=== PATIENT | male | born 1980 | race Caucasian/White ===

== ENCOUNTER 2022-05-26 09:28 | Day surgery (SDC) | payer OTHER ==
[2022-05-26] VITALS (9 sets, daily range): BP systolic 126–146; BP diastolic 71–93
[~2022-05-26] VITALS: Ht 185.4 cm; Wt 163.7 kg
[~2022-05-26 09:28] MED LIST: CETI-194 PO; FLUT16SP2 BOTHNARES; cocaine 4% topical solution 4ml bottle ONE; epiNEPHrine 1 mg/ml inj ONE; famotidine 20mg tablet PO ONE; mupirocin 2% ointment 22GM ONE; oxymetazoline 15 ML nasal spray NS ONE; oxymetazoline 15 ML nasal spray NS PRN; ringers solution, lacted 1,000 ML IV SCH; tranexamic acid 100mg/ml inj. ONE; tranexamic acid inj. 1,000 MG in normal saline IV soln 100ML IV ONE
[2022-05-26] MEDS ORDERED: LIDOcaine 1% W/epiNEPHrine 1:100,000 20ml vial ONE (11:30)
[2022-05-26] MEDS ORDERED: midazolam 1 mg/ML 2ml injection ONE (12:24)
[2022-05-26] MEDS ORDERED: fentaNYL /PF 50mcg/ml 5ml ampule ONE (12:25)
[2022-05-26] MEDS ORDERED: rocuronium 10mg/ml inj IV ONE ×2 (12:27→12:45)
[2022-05-26] MEDS ORDERED: LIDOcaine 2% (20mg/ml) 5ml vial ONE (12:27)
[2022-05-26] MEDS ORDERED: dexamethasone sod phosphate 4mg/ml inj. ONE (12:27)
[2022-05-26] MEDS ORDERED: propofol inj 20 ML IV ONE (12:27)
[2022-05-26] MEDS ORDERED: sevoflurane 250ml liquid IH ONE (12:45)
[2022-05-26] MEDS ORDERED: meperidine/PF 25mg/ml syringe IV PRN ×3 (13:10)
[2022-05-26] MEDS ORDERED: ringers solution, lacted 1,000 ML IV SCH (13:10)
[2022-05-26] MEDS ORDERED: ondansetron/PF 4mg/2ml inj IV PRN (13:10)
[2022-05-26] MEDS ORDERED: proCHLORperazine 10 MG/2 ml inj IV PRN (13:10)
[2022-05-26] MEDS ORDERED: morphine 2 MG/ML inj. syringe IV PRN (13:10)
[2022-05-26] MEDS ORDERED: morphine 4 MG/ML inj SYRINge IV PRN (13:10)
[2022-05-26] MEDS ORDERED: LIDOcaine 1% W/epiNEPHrine 1:100,000 20ml vial IJ ONE (13:33)
[2022-05-26] MEDS ORDERED: cocaine 4% topical solution 4ml bottle TP ONE (13:34)
[2022-05-26] MEDS ORDERED: oxymetazoline 15 ML nasal spray NS ONE (13:34)
[2022-05-26] MEDS ORDERED: ondansetron/PF 4mg/2ml inj ONE (13:41)
[2022-05-26] MEDS ORDERED: ePHEDrine 50MG/ML INJ. ONE (13:41)
[2022-05-26] MEDS ORDERED: acetaminophen 1,000mg/100ml IV 100 ML IV ONE (13:58)
[2022-05-26] MEDS ORDERED: glycopyrrolate 0.2mg/ml inj ONE (14:00)
[2022-05-26] MEDS ORDERED: neostigmine methylsulfate 1 MG/ML 10ml vial ONE (14:00)
--- NOTE | 2022-05-26 14:19 | NUR ---
Received from OR via , accompanied by Anesthesiologist PARMINDER AND OR NURSE and report given by Anesthesiolgist. PT IS DROWSY YET ABLE TO RESPOND TO VERBAL STIMULI. HAS MODERATE PAIN AND WAS TREATED BY PARMINDER WITH FENTANYL. 20G TO RT HAND. VSS Addendum: 05/26/22 at 1437 by Nilda Beck RN Amended: Links added.
--- NOTE | 2022-05-26 15:49 | NUR ---
ALL DISCHARGE CRITERIA HAS BEEN MET. VSS, PAIN AT A TOLERABLE LEVEL, VOIDING AND ABLE TO SAFELY AMBULATE AND TRANSFER SELF. IV TAKEN OUT WITHOUT ANY COMPLICATIONS. ALL DISCHARGE INSTRUCTIONS COVERED WITH PATIENT AND ALL QUESTIONS ANSWERED. PATIENT TAKEN OUT VIA WHEELCHAIR TO PERSONAL VEHICLE WHERE FAMILY/FRIEND DROVE PATIENT HOME. Addendum: 05/26/22 at 1608 by Nilda Beck RN Amended: Links added.
== END 2022-05-26 15:49 | disposition home or self-care (01) ==
LOC: PAS 09:28
PROVIDERS: ATTEND Otolaryngology
DX: J32.8 Other chronic sinusitis (principal); J34.3 Hypertrophy of nasal turbinates; J34.89 Other specified disorders of nose and nasal sinuses; E66.01 Morbid (severe) obesity due to excess calories; Z68.42 Body mass index [BMI] 45.0-49.9, adult; Z72.89 Other problems related to lifestyle; Z88.2 Allergy status to sulfonamides; Z87.891 Personal history of nicotine dependence; Z79.899 Other long term (current) drug therapy; Z20.822 Contact with and (suspected) exposure to COVID-19
CPT/HCPCS: 30140; 31240; 31255; 31256; 31259; 31276; 36415; 61782; 82948; 87635; 93005; A6402; C9803; J0131; J0171; J1100; J2250; J2405; J2704; J2710; J3010; J3490; J7030; J7050; J7120; U0003; U0005; Z7506; Z7508; Z7512; A4618; A6449; A7000